=== PATIENT | female | born 1960 ===

== ENCOUNTER 2020-07-29 11:36 | Emergency (ER) | payer OTHER ==
[~2020-07-29] VITALS: Ht 165.1 cm; Wt 108.6 kg
[~2020-07-29 11:36] MED LIST: CLON0.1T22 PO; DIVA-59 PO; HYDR-3245 PO; LISI-170 PO; NAPR220C2 PO
--- NOTE | 2020-07-29 11:47 | NUR ---
supervisor nurse: EKG completed in triage
--- NOTE | 2020-07-29 12:21 | NUR ---
PT PLACED ON [employer]
[2020-07-29] MEDS ORDERED: ONDANSETRON 2MG/ML, 2ML ONE (12:55)
[2020-07-29] MEDS ORDERED: ASPIRIN 81 MG TABLET CHEW ONE (12:56)
[2020-07-29] MEDS ORDERED: MORPHINE SULFATE 4 MG/ML, 1ML ONE (12:56)
[2020-07-29] MEDS ORDERED: MORPHINE SULFATE 4 MG/ML, 1ML IVPush PRN (13:00)
[2020-07-29] MEDS ORDERED: ONDANSETRON 2MG/ML, 2ML IVPush ONE (13:00)
[2020-07-29] MEDS ORDERED: SODIUM CHLORIDE FLUSH 10ML SYR IVF ONE (13:00)
[2020-07-29] MEDS ORDERED: ASPIRIN 81 MG TABLET CHEW PO ONE (13:00)
[2020-07-29] MEDS ORDERED: HYDR25TA6 PO (13:07)
[2020-07-29] MEDS ORDERED: METF-163 PO (13:09)
[2020-07-29] MEDS ORDERED: DULO30CA2 PO (13:09)
[2020-07-29] MEDS ORDERED: MULT-658 PO (13:10)
[2020-07-29] MEDS ORDERED: LISI40TA PO (13:11)
[2020-07-29] MEDS ORDERED: BACL-19 PO (13:12)
[2020-07-29] MEDS ORDERED: BENZ-17 PO (13:13)
[2020-07-29 13:15] LABS: BASOPHILS % (AUTO) 0 % (0-1); EOSINOPHILS % (AUTO) 1 % (1-7); LYMPHOCYTES % (AUTO) 44 % (22-44); MEAN CORPUSCULAR HEMOGLOBIN 29.9 pg (27.0-34.8); MEAN CORPUSCULAR HGB CONC 33.6 g/dL (32.4-35.8); MEAN PLATELET VOLUME 9.7 fL (7.4-10.4); MONOCYTES % (AUTO) 5 % (2-9); NEUTROPHILS % (AUTO) 50 % (42-75); PLATELET COUNT 215 x10^3/uL (130-400); RED BLOOD COUNT 4.98 x10^6/uL (3.82-5.3); RED CELL DISTRIBUTION WIDTH 13.8 % (9.6-15.2)
[2020-07-29 13:16] LABS: MD NO
[2020-07-29 13:22] LABS: ALANINE AMINOTRANSFERASE 25 U/L (12-78); ALBUMIN 3.3 g/dL (3.4-5.0); ANION GAP 8 mmol/L (5-15); CALCIUM 8.7 mg/dL (8.5-10.1); CHLORIDE 104 mmol/L (98-107); CREATININE 1.06 mg/dL (0.55-1.02)
[2020-07-29 13:26] LABS: ALKALINE PHOSPHATASE 118 U/L (45-117); BILIRUBIN,TOTAL 0.6 mg/dL (0.2-1.0); TROPONIN I < 0.015 ng/mL (0.000-0.045)
--- NOTE | 2020-07-29 14:18 | NUR ---
LATE ENTRY: PT CAME IN CO OF CP THAT RADIATES TO HER BACK AND JAW X 3 DAYS. PT ALSO CO OF ABD PAIN. LABS DRAWN. EKG COMPLETE. UA SENT
[2020-07-29 14:20] LABS: MICROSCOPIC NOT IND
[2020-07-29] MEDS ORDERED: MAALOX/HYOSCYAMINE/LIDOCAINE 45 ML BTL ONE (15:18)
[2020-07-29] MEDS ORDERED: FAMOTIDINE 20 MG/2 ML IVPush ONE (15:30)
[2020-07-29] MEDS ORDERED: MAALOX/HYOSCYAMINE/LIDOCAINE 45 ML BTL PO ONE (15:30)
[2020-07-29] MEDS ORDERED: OMNIPAQUE 350 MG/ML, 100ML BOTTLE ONE (16:33)
[2020-07-29] MEDS ORDERED: FAMOTIDINE 20 MG/2 ML ONE (17:49)
[2020-07-29 17:54] VITALS: BP 108/62
== END 2020-07-29 18:11 | disposition home or self-care (01) ==
LOC: ED 15:53
DX: R07.89 Other chest pain (principal); R10.9 Unspecified abdominal pain; R06.02 Shortness of breath; R11.0 Nausea; I10 Essential (primary) hypertension; E11.9 Type 2 diabetes mellitus without complications
CPT/HCPCS: 36415; 71045; 74177; 80053; 81003; 83690; 84484; 85025; 85379; 93005; 96374; 96375; 99285; J2270; J2405; Q9967; 99284

== ENCOUNTER 2020-11-24 05:47 | Day surgery (SDC) | payer OTHER ==
[2020-11-21 12:05] VITALS: BP 117/82
[2020-11-21 12:59] LABS: CHLORIDE 104 mmol/L (98-107)
[2020-11-21 13:09] LABS: ALANINE AMINOTRANSFERASE 23 U/L (12-78); ALBUMIN 3.8 g/dL (3.4-5.0); ALKALINE PHOSPHATASE 111 U/L (45-117); ANION GAP 6 mmol/L (5-15); BILIRUBIN,TOTAL 0.5 mg/dL (0.2-1.0); CALCIUM 9.4 mg/dL (8.5-10.1)
[~2020-11-24] VITALS: Ht 165.1 cm; Wt 104.7 kg
[~2020-11-24 05:47] MED LIST changes: +BACL-19 PO; +BENZ-17 PO; +DULO30CA2 PO; +EMPA10TA PO; +FLUT1BLS8 INH; -HYDR-3245 PO; +HYDR1TAB53 PO; +HYDR25TA6 PO; +LISI40TA9 PO; +METF-163 PO; +MOME13HF2 INH; +MULT-658 PO; +OXYB5TAB10 PO
[2020-11-24] MEDS ORDERED: LACTATED RINGERS 1,000 ML IV SCH (06:00)
[2020-11-24] MEDS ORDERED: CHLORHEXIDINE 15 ML UDC PO ONE (06:00)
[2020-11-24 06:13] VITALS: BP 117/82
[2020-11-24] MEDS ORDERED: BUPIVACAINE/PF 0.5% ONE (06:47)
[2020-11-24] MEDS ORDERED: EPINEPHRINE 1 MG/ML, 1ML ONE (06:57)
[2020-11-24] MEDS ORDERED: PROPOFOL 50 ML ONE (07:06)
[2020-11-24] MEDS ORDERED: MIDAZOLAM 1 MG/ML, 2ML ONE (07:07)
[2020-11-24] MEDS ORDERED: FENTANYL PF 250 MCG/5ML ONE (07:07)
[2020-11-24] MEDS ORDERED: HYDR-2214 PO (07:13)
[2020-11-24] MEDS ORDERED: BUPIVACAINE/PF-EPI 0.5% 1:200K INFIL ONE (07:34)
[2020-11-24] MEDS ORDERED: EPHEDRINE 50 MG/ML, 1ML IVPush PRN (08:00)
[2020-11-24] MEDS ORDERED: morphine SULFATE 10 MG/ML, 1ML IVPush PRN (08:00)
[2020-11-24] MEDS ORDERED: PROMETHAZINE 25 MG/ML, 1ML IVPush PRN (08:00)
[2020-11-24] MEDS ORDERED: ONDANSETRON 2MG/ML, 2ML IVPush PRN (08:00)
[2020-11-24] MEDS ORDERED: LABETALOL 5MG/ML, 20ML IV PRN (08:00)
[2020-11-24] MEDS ORDERED: DIPHENHYDRAMINE 50 MG/ML, 1ML IVPush PRN (08:00)
[2020-11-24] MEDS ORDERED: DIAZEPAM 5 MG/ML, 2ML IVPush PRN (08:00)
[2020-11-24] MEDS ORDERED: ACETAMINOPHEN 325 MG TABLET PO PRN (08:00)
[2020-11-24] MEDS ORDERED: EPHEDRINE 50 MG/ML, 1ML IM PRN (08:00)
[2020-11-24] MEDS ORDERED: FENTANYL PF 100 MCG/2ML IV PRN (08:00)
[2020-11-24] MEDS ORDERED: MEPERIDINE/PF 25MG/0.5ML IVPush PRN (08:00)
[2020-11-24] MEDS ORDERED: METHOCARBAMOL 1,000 MG in DEXTROSE 5% 100 ML IV PRN (08:00)
[2020-11-24] MEDS ORDERED: FENTANYL PF 100 MCG/2ML ONE (08:12)
[2020-11-24] MEDS ORDERED: ACETAMINOPHEN 650 MG/20.3 ML UDC ONE (08:12)
[2020-11-24] MEDS ORDERED: OXYcodone 5 MG/5 ML ORAL.SOL UDC ONE (08:13)
[2020-11-24] MEDS: OXYcodone 5 MG/5 ML ORAL.SOL UDC PO PRN ×2 (08:15→09:05)
[2020-11-24] MEDS ORDERED: MEPERIDINE/PF 25MG/ML,1ML ONE (09:38)
[2020-11-24] MEDS ORDERED: DEXAMETHASONE 4 MG/ML, 1ML ONE (16:49)
[2020-11-24] MEDS ORDERED: PROPOFOL 10 MG/ML, 20ML ONE (16:49)
[2020-11-24] MEDS ORDERED: ROCURONIUM 10MG/ML,5ML ONE (16:49)
[2020-11-24] MEDS ORDERED: SUCCINYLCHOLINE 20 MG/ML, 10ML ONE (16:49)
[2020-11-24] MEDS ORDERED: CEFAZOLIN 1,000 MG ONE (16:49)
[2020-11-24] MEDS ORDERED: ONDANSETRON 2MG/ML, 2ML ONE (16:49)
== END 2020-11-24 11:55 | disposition home or self-care (01) ==
LOC: OUT 05:47
PROVIDERS: ATTEND Surgery
DX: K80.10 Calculus of gallbladder with chronic cholecystitis without obstruction (principal); E11.9 Type 2 diabetes mellitus without complications; I10 Essential (primary) hypertension; E78.00 Pure hypercholesterolemia, unspecified; M19.90 Unspecified osteoarthritis, unspecified site; Z20.822 Contact with and (suspected) exposure to COVID-19; Z79.84 Long term (current) use of oral hypoglycemic drugs; Z79.891 Long term (current) use of opiate analgesic; Z79.899 Other long term (current) drug therapy; Z87.891 Personal history of nicotine dependence; Z88.8 Allergy status to other drugs, medicaments and biological substances; Z90.49 Acquired absence of other specified parts of digestive tract
CPT/HCPCS: 36415; 47562; 80053; 82962; 88304; 93005; J0171; J0330; J0690; J1100; J2175; J2250; J2405; J2704; J2800; J3010; J7120; U0003; U0005

== ENCOUNTER → 2021-02-23 | Outpatient (CLI) | payer OTHER ==
[~2021-02-23] MED LIST changes: +BUTA1CAP58 PO; +HYDR-2214 PO; +HYDR-3248 PO; +PHEN37.53 PO
== END | disposition home or self-care (01) ==
LOC: RAD 09:55 → MERGE 10:15
PROVIDERS: ATTEND Otolaryngology
DX: R13.12 Dysphagia, oropharyngeal phase (principal)
CPT/HCPCS: 74230